=== PATIENT | male | born 1985 | race Caucasian/White ===

== ENCOUNTER 2019-04-09 00:16 | Emergency (ER) | payer OTHER ==
--- NOTE | 2019-04-09 00:50 | ED ---
General Adult HPI - General Chief complaint: Psychiatric Symptoms Stated complaint: Petition Time Seen by Provider: 04/09/19 00:36 Source: patient, family Mode of arrival: ambulatory Limitations: no limitations - History of Present Illness Initial comments: Dictation was produced using [employer] dictation software. please excuse any gramm atical, word or spelling errors. Chief Complaint: 33-year-old male with suicidal ideation. History of Present Illness: Patient is 33-year-old male. He is petitioned by his mother. Patient is escorted via law enforcement. Patient was allegedly at home. He states he is been under a lot of personal stress. He was diagnosed with a crit cancer 8 months ago. Patient is at home and held a knife to himself [place] suicidal comment to his mother. Mother's is here to petitioned patie nt for psychiatric reasons. Patient states he's been stressed and has been taking his medications like he supposed to. Patient reports he is on a lot of medications. Patient takes pain medications as well for chronic pain. The ROS documented in this emergency department record has been reviewed and confirmed by me. Those systems with pertinent positive or negative responses have been documented in the HPI. All other systems are other negative and/or noncontributory. PHYSICAL EXAM: General Impression: Alert and oriented x3, not in acute distress HEENT: Normocephalic atraumatic, extra-ocular movements intact, pupils equal and reactive to light bilaterally, mucous membranes moist. Cardiovascular: Heart regular rate and rhythm, S1&S2 audible, no murmurs, rubs or gallops Chest: Lungs clear to auscultation bilaterally, no rhonchi, no wheeze, no rales Abdomen: Bowel sounds present, abdomen soft, non-tender, non-distended, no organomegaly Musculoskeletal: Pulses present and equal in all extremities, no peripheral edema Motor: no focal deficits noted Neurological: CN II-XII grossly intact, no focal motor or sensory deficits noted Skin: Intact with no visualized rashes Psych: Normal affect and mood ED course: 33-year-old old male presents with suicidal ideation. Patient has no medical complaints at this time. On arrival are within acceptable limits.Return evaluation was obtained. CBC, coag panel, metabolic panel is unremarkable. Patient did have a alcohol level of 125. Patient was kept in the emergency department to clinical sobriety. EPS was consult it patient is evaluated by EPS and recommended the patient's clear for discharge. He does also provide patient with outpatient resources. Patient does have established outpatient psychiatric care. Patient reevaluated at bedside. He reports that he is not currently suicidal. Patient states he's undergoing a lot of personal stress given living arrangements and recent diagnosis of pancreatic cancer. She states he will follow up outpatient. Patient denies suicidal ideation at this time. Patient clear for discharge. - Related Data Allergies Allergy/AdvReac Type Severity Reaction Status Date / Time asenapine [From Saphris] Allergy Hallucinati Verified 04/09/19 00:33 ons Review of Systems ROS Statement: Those systems with pertinent positive or pertinent negative responses have been documented in the HPI. ROS Other: All systems not noted in ROS Statement are negative. Past Medical History Additional Past Medical History / Comment(s): pancreatic cancer, back pain, Hep C, History of Any Multi-Drug Resistant Organisms: None Reported Past Surgical History: Orthopedic Surgery Additional Past Surgical History / Comment(s): tumor removal left wrist Past Psychological History: Anxiety, Depression Smoking Status: Current every day smoker Past Alcohol Use History: Heavy Past Drug Use History: None Reported General Exam Limitations: no limitations Course Vital Signs 04/09/19 00:25 Temperature 98.4 F Pulse Rate 93 Respiratory 20 Rate Blood Pressure 117/69 O2 Sat by Pulse 96 Oximetry Medical Decision Making - Lab Data Result diagrams: 04/09/19 00:48 04/09/19 00:48 Lab Results 04/09/19 04/09/19 04/09/19 Range/Units 00:48 00:48 00:48 WBC 9.7 (3.8-10.6) k/uL RBC 5.02 (4.30-5.90) m/uL Hgb 14.7 (13.0-17.5) gm/dL Hct 43.9 (39.0-53.0) % MCV 87.4 (80.0-100.0) fL MCH 29.3 (25.0-35.0) pg MCHC 33.6 (31.0-37.0) g/dL RDW 14.1 (11.5-15.5) % Plt Count 267 (150-450) k/uL Neutrophils % 62 % Lymphocytes % 30 % Monocytes % 5 % Eosinophils % 1 % Basophils % 1 % Neutrophils # 6.0 (1.3-7.7) k/uL Lymphocytes # 2.9 (1.0-4.8) k/uL Monocytes # 0.5 (0-1.0) k/uL Eosinophils # 0.1 (0-0.7) k/uL Basophils # 0.1 (0-0.2) k/uL PT (9.0-12.0) sec INR (<1.2) Sodium 142 (137-145) mmol/L Potassium 4.8 (3.5-5.1) mmol/L Chloride 107 (98-107) mmol/L Carbon Dioxide 25 (22-30) mmol/L Anion Gap 10 mmol/L BUN 9 (9-20) mg/dL Creatinine 0.98 (0.66-1.25) mg/dL Est GFR (CKD-EPI)AfAm >90 (>60 ml/min/1.73 sqM) Est GFR (CKD-EPI)NonAf >90 (>60 ml/min/1.73 sqM) Glucose 85 (74-99) mg/dL Plasma Lactic Acid Marck 1.3 (0.7-2.0) mmol/L Calcium 9.2 (8.4-10.2) mg/dL Total Bilirubin 0.4 (0.2-1.3) mg/dL AST 69 H (17-59) U/L ALT 40 (21-72) U/L Alkaline Phosphatase 99 (38-126) U/L Total Protein 8.4 H (6.3-8.2) g/dL Albumin 4.9 (3.5-5.0) g/dL Lipase 61 (23-300) U/L Urine Opiates Screen (NotDetected) Ur Oxycodone Screen (NotDetected) Urine Methadone Screen (NotDetected) Ur Propoxyphene Screen (NotDetected) Ur Barbiturates Screen (NotDetected) U Tricyclic Antidepress (NotDetected) Ur Phencyclidine Scrn (NotDetected) Ur Amphetamines Screen (NotDetected) U Methamphetamines Scrn (NotDetected) U Benzodiazepines Scrn (NotDetected) Urine Cocaine Screen (NotDetected) U Marijuana (THC) Screen (NotDetected) Serum Alcohol 125 mg/dL 04/09/19 04/09/19 Range/Units 00:48 00:48 WBC (3.8-10.6) k/uL RBC (4.30-5.90) m/uL Hgb (13.0-17.5) gm/dL Hct (39.0-53.0) % MCV (80.0-100.0) fL MCH (25.0-35.0) pg MCHC (31.0-37.0) g/dL RDW (11.5-15.5) % Plt Count (150-450) k/uL Neutrophils % % Lymphocytes % % Monocytes % % Eosinophils % % Basophils % % Neutrophils # (1.3-7.7) k/uL Lymphocytes # (1.0-4.8) k/uL Monocytes # (0-1.0) k/uL Eosinophils # (0-0.7) k/uL Basophils # (0-0.2) k/uL PT 10.8 (9.0-12.0) sec INR 1.0 (<1.2) Sodium (137-145) mmol/L Potassium (3.5-5.1) mmol/L Chloride (98-107) mmol/L Carbon Dioxide (22-30) mmol/L Anion Gap mmol/L BUN (9-20) mg/dL Creatinine (0.66-1.25) mg/dL Est GFR (CKD-EPI)AfAm (>60 ml/min/1.73 sqM) Est GFR (CKD-EPI)NonAf (>60 ml/min/1.73 sqM) Glucose (74-99) mg/dL Plasma Lactic Acid Marck (0.7-2.0) mmol/L Calcium (8.4-10.2) mg/dL Total Bilirubin (0.2-1.3) mg/dL AST (17-59) U/L ALT (21-72) U/L Alkaline Phosphatase (38-126) U/L Total Protein (6.3-8.2) g/dL Albumin (3.5-5.0) g/dL Lipase (23-300) U/L Urine Opiates Screen Detected H (NotDetected) Ur Oxycodone Screen Not Detected (NotDetected) Urine Methadone Screen Not Detected (NotDetected) Ur Propoxyphene Screen Not Detected (NotDetected) Ur Barbiturates Screen Not Detected (NotDetected) U Tricyclic Antidepress Not Detected (NotDetected) Ur Phencyclidine Scrn Not Detected (NotDetected) Ur Amphetamines Screen Not Detected (NotDetected) U Methamphetamines Scrn Not Detected (NotDetected) U Benzodiazepines Scrn Detected H (NotDetected) Urine Cocaine Screen Not Detected (NotDetected) U Marijuana (THC) Screen Not Detected (NotDetected) Serum Alcohol mg/dL Disposition Clinical Impression: Suicidal ideation Disposition: HOME SELF-CARE Condition: Good Instructions (If sedation given, give patient instructions): Help Prevent Suicide (ED) Is patient prescribed a controlled substance at d/c from ED?: No Referrals: Nonstaff,Physician [REFERRING] - 1-2 days Time of Disposition: 05:41
[2019-04-09 01:11] LABS: Basophils # (A) 0.1 k/uL (0-0.2); Basophils % (A) 1 %; Eosinophils # (A) 0.1 k/uL (0-0.7); Eosinophils % (A) 1 %; HCT 43.9 % (39.0-53.0); HGB 14.7 gm/dL (13.0-17.5); Lymphocytes # (A) 2.9 k/uL (1.0-4.8); Lymphocytes % (A) 30 %; MCH 29.3 pg (25.0-35.0); MCHC 33.6 g/dL (31.0-37.0); MCV 87.4 fL (80.0-100.0); Mean Platelet Volume 6.3; Monocytes # (A) 0.5 k/uL (0-1.0); Monocytes % (A) 5 %; Neutrophils % (A) 62 %; Platelet Count 267 k/uL (150-450); RBC 5.02 m/uL (4.30-5.90); RDW 14.1 % (11.5-15.5); WBC 9.7 k/uL (3.8-10.6)
[2019-04-09 01:23] LABS: Prothrombin Time 10.8 sec (9.0-12.0)
[2019-04-09 01:26] LABS: Amphetamine Screen,Urine Not Detected (NotDetected); Barbiturate Screen,Urine Not Detected (NotDetected); Benzodiazepines Screen,Urine Detected (NotDetected); Cocaine Screen,Urine Not Detected (NotDetected); Methadone Screen, Urine Not Detected (NotDetected); Opiate Screen,Urine Detected (NotDetected); Oxycodone Screen, Urine Not Detected (NotDetected); Phencyclidine Screen,Urine Not Detected (NotDetected); Tricyclic Antidepressant,Urine Not Detected (NotDetected); Urn Cannabinoid Scrn Not Detected (NotDetected)
[2019-04-09] MEDS: MORPHINE SULFATE 4 MG/ML SYRINGE IVP PRN ×2 (01:28→03:34)
[2019-04-09 01:29] LABS: ALT 40 U/L (21-72); AST 69 U/L (17-59); African American GFR (CKD) >90 (>60 ml/min/1.73 sqM); Albumin 4.9 g/dL (3.5-5.0); Alkaline Phosphatase 99 U/L (38-126); Anion Gap 10 mmol/L; Blood Urea Nitrogen 9 mg/dL (9-20); Calcium 9.2 mg/dL (8.4-10.2); Carbon Dioxide 25 mmol/L (22-30); Chloride 107 mmol/L (98-107); Glucose 85 mg/dL (74-99); Lipase 61 U/L (23-300); Potassium 4.8 mmol/L (3.5-5.1); Sodium 142 mmol/L (137-145); Total Bilirubin 0.4 mg/dL (0.2-1.3); Total Protein 8.4 g/dL (6.3-8.2)
[2019-04-09 01:36] LABS: Alcohol 125 mg/dL
[2019-04-09] MEDS ORDERED: MORPHINE SULFATE 4 MG/ML SYRINGE IVP PRN (03:13)
[2019-04-09 06:36] VITALS: BP 116/56; PULSE 83; RESP 19; TEMP 97.6
== END 2019-04-09 06:33 | disposition home or self-care (01) ==
LOC: EC 00:16
DX: R45.851 Suicidal ideations (principal); C25.9 Malignant neoplasm of pancreas, unspecified; F43.8 Other reactions to severe stress; G89.29 Other chronic pain; F17.200 Nicotine dependence, unspecified, uncomplicated; Z88.8 Allergy status to other drugs, medicaments and biological substances
CPT/HCPCS: 82075; 36415; 80053; 83605; 83690; 85025; 85610; 80306; 99285; 96374; 96376; G0480; J2270; 80320

== ENCOUNTER 2019-04-09 16:20 | Inpatient (IN) | payer MEDICAID, OTHER ==
--- NOTE | 2019-04-09 16:42 | ED ---
General Adult HPI - General Stated complaint: Mental Health Time Seen by Provider: 04/09/19 16:25 Source: RN notes reviewed - History of Present Illness Initial comments: This is a 33-year-old male who presents emergency Department stating his bipolar as well as schizophrenic. Patient states she was recently admitted to a psychiatric facility and was discharged 2 days ago and he states ever since then he has not taken any as medications. Patient felt as though no one cares about him so he decided to take his meds. Patient states he is suicidal today and he tried cutting himself in multiple places but was unable to make any significant lacerations. Patient states he had a few beers today but denies any drug use today. Patient states she's chronically on opiates but has not had them since he left the hospital recently. Patient denies any recent fever chills or cough per patient denies headache patient denies numbness weakness. Patient denies chest pain difficulty breathing shortest breath per patient denies abdominal pain. Patient denies any nausea vomiting diarrhea. 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 - Related Data Home Medications Medication Instructions Recorded Confirmed Dextroamphetamine/Amphetamine 20 mg PO BID 04/09/19 04/09/19 [Adderall] Gabapentin 600 mg PO BID 04/09/19 04/09/19 QUEtiapine [SEROquel] 400 mg PO HS 04/09/19 04/09/19 Sertraline [Zoloft] 150 mg PO DAILY 04/09/19 04/09/19 Trihexyphenidyl HCl 5 mg PO HS 04/09/19 04/09/19 clonazePAM [KlonoPIN] 1 mg PO TID 04/09/19 04/09/19 Allergies Allergy/AdvReac Type Severity Reaction Status Date / Time asenapine [From Saphris] AdvReac Hallucinati Verified 04/09/19 17:11 ons Review of Systems ROS Statement: Those systems with pertinent positive or pertinent negative responses have been documented in the HPI. ROS Other: All systems not noted in ROS Statement are negative. Past Medical History Additional Past Medical History / Comment(s): pancreatic cancer, back pain, Hep C, History of Any Multi-Drug Resistant Organisms: None Reported Past Surgical History: Orthopedic Surgery Additional Past Surgical History / Comment(s): tumor removal left wrist Past Psychological History: Anxiety, Depression Smoking Status: Current every day smoker Past Alcohol Use History: Heavy Past Drug Use History: None Reported General Exam - General Exam Comments Initial Comments: GENERAL: Patient is well-developed and well-nourished. Patient is nontoxic and well- hydrated and is in mild distress. ENT: Neck has full range of motion without eliciting any pain. EYES: The sclera were anicteric and conjunctiva were pink and moist. Extraocular movements were intact and pupils were equal round and reactive to light. Eyelids were unremarkable. PULMONARY: Unlabored respirations. Good breath sounds bilaterally. No audible rales rhonchi or wheezing was noted. CARDIOVASCULAR: There is a regular rate and rhythm without any murmurs gallops or rubs. ABDOMEN: Soft and nontender with normal bowel sounds. SKIN: Skin is clear with no lesions or rashes and otherwise unremarkable. NEUROLOGIC: Patient is alert and oriented x3. Cranial nerves II through XII are grossly intact. Motor and sensory are also intact. Normal speech, volume and content. Symmetrical smile. MUSCULOSKELETAL: Patient has full range of motion of all his extremities however the left posterior hand has a rate in diameter mass which is tender to palpation but not warm or erythematous. LYMPHATICS: No significant lymphadenopathy is noted PSYCHIATRIC: Patient states he suicidal. Course Vital Signs 04/09/19 16:30 Temperature 98 F Pulse Rate 84 Respiratory 18 Rate Blood Pressure 124/85 O2 Sat by Pulse 96 Oximetry Medical Decision Making - Medical Decision Making Dr. Whiteside will be taking over the care of this patient at 9 PM - Lab Data Lab Results 04/09/19 Range/Units 17:50 Urine Opiates Screen Detected H (NotDetected) Ur Oxycodone Screen Not Detected (NotDetected) Urine Methadone Screen Not Detected (NotDetected) Ur Propoxyphene Screen Not Detected (NotDetected) Ur Barbiturates Screen Not Detected (NotDetected) U Tricyclic Antidepress Not Detected (NotDetected) Ur Phencyclidine Scrn Not Detected (NotDetected) Ur Amphetamines Screen Not Detected (NotDetected) U Methamphetamines Scrn Not Detected (NotDetected) U Benzodiazepines Scrn Not Detected (NotDetected) Urine Cocaine Screen Not Detected (NotDetected) U Marijuana (THC) Screen Not Detected (NotDetected) Disposition Referrals: Guido Lopez MD [Primary Care Provider] - 1-2 days
[2019-04-09 18:51] LABS: Amphetamine Screen,Urine Not Detected (NotDetected); Barbiturate Screen,Urine Not Detected (NotDetected); Benzodiazepines Screen,Urine Not Detected (NotDetected); Cocaine Screen,Urine Not Detected (NotDetected); Methadone Screen, Urine Not Detected (NotDetected); Opiate Screen,Urine Detected (NotDetected); Oxycodone Screen, Urine Not Detected (NotDetected); Phencyclidine Screen,Urine Not Detected (NotDetected); Tricyclic Antidepressant,Urine Not Detected (NotDetected); Urn Cannabinoid Scrn Not Detected (NotDetected)
[2019-04-09] MEDS ORDERED: ACETAMINOPHEN TAB 325 MG TAB PO PRN (21:52)
[2019-04-09] MEDS ORDERED: MAGNESIUM HYDROXIDE 2,400 MG/10 ML CUP PO PRN (21:52)
[2019-04-09] MEDS ORDERED: ZIPRASIDONE 20 MG VIAL IM PRN (21:52)
[2019-04-09] MEDS ORDERED: MAG HYDROX/AL HYDROX/SIMETH 30 ML CUP PO PRN (21:52)
[2019-04-09] MEDS: QUEtiapine 400 MG TAB PO SCH (22:36)
[2019-04-09] MEDS: LORazepam 1 MG TAB PO PRN (22:44)
[2019-04-10 02:54] VITALS: BMI 21.0
[2019-04-10] MEDS: NICOTINE 14MG/24HR PATCH TRANSDERM SCH (09:23)
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
[2019-04-10] MEDS: SERTRALINE 100 MG TAB PO SCH (09:30)
[2019-04-10] MEDS: LORazepam 1 MG TAB PO PRN ×2 (09:31→21:12)
[2019-04-10] MEDS: FOLIC ACID 1 MG TAB PO SCH (09:31)
[2019-04-10] MEDS: THIAMINE 100 MG TAB PO SCH (09:31)
[2019-04-10] MEDS: GABAPENTIN 300 MG CAP PO SCH ×2 (09:31→21:11)
[2019-04-10 11:03] LABS: Basophils % (A) 0 %; Eosinophils # (A) 0.1 k/uL (0-0.7); Eosinophils % (A) 1 %; HCT 44.5 % (39.0-53.0); HGB 14.5 gm/dL (13.0-17.5); Lymphocytes # (A) 1.7 k/uL (1.0-4.8); Lymphocytes % (A) 25 %; MCH 28.8 pg (25.0-35.0); MCHC 32.7 g/dL (31.0-37.0); Mean Platelet Volume 6.5; Monocytes # (A) 0.4 k/uL (0-1.0); Monocytes % (A) 6 %; Neutrophils # (A) 4.6 k/uL (1.3-7.7); Neutrophils % (A) 66 %; Platelet Count 227 k/uL (150-450); RBC 5.06 m/uL (4.30-5.90); RDW 13.9 % (11.5-15.5); WBC 6.9 k/uL (3.8-10.6)
[2019-04-10 11:30] LABS: ALT 42 U/L (21-72); AST 53 U/L (17-59); African American GFR (CKD) >90 (>60 ml/min/1.73 sqM); Albumin 4.1 g/dL (3.5-5.0); Alkaline Phosphatase 87 U/L (38-126); Anion Gap 5 mmol/L; Bilirubin, Delta 0.1 mg/dL (0.0-0.2); Bilirubin,Unconjugated 0.3 mg/dL (0.0-1.1); Blood Urea Nitrogen 14 mg/dL (9-20); Calcium 9.2 mg/dL (8.4-10.2); Carbon Dioxide 30 mmol/L (22-30); Chloride 105 mmol/L (98-107); Cholesterol 212 mg/dL (<200); Glucose 96 mg/dL (74-99); HDL Cholesterol 59 mg/dL (40-60); LDL Cholesterol,Calculated 121 mg/dL (0-99); Potassium 4.3 mmol/L (3.5-5.1); Sodium 140 mmol/L (137-145); Total Bilirubin 0.4 mg/dL (0.2-1.3); Total Protein 6.9 g/dL (6.3-8.2); Triglycerides 160 mg/dL (<150)
[2019-04-10 18:29] LABS: Hemoglobin A1C 5.5 % (4.0-6.0)
[2019-04-10] MEDS: QUEtiapine 400 MG TAB PO SCH (21:12)
--- NOTE | 2019-04-10 21:36 | P.PN ---
Progress Note - Text Progress Note Date: 04/10/19 patient refused to be seen at this time by the medical doctor
[2019-04-11] MEDS: SERTRALINE 100 MG TAB PO SCH (08:30)
[2019-04-11] MEDS: THIAMINE 100 MG TAB PO SCH (08:31)
[2019-04-11] MEDS: FOLIC ACID 1 MG TAB PO SCH (08:31)
[2019-04-11] MEDS: GABAPENTIN 300 MG CAP PO SCH ×2 (08:32→20:40)
[2019-04-11] MEDS: LORazepam 1 MG TAB PO PRN ×3 (08:33→20:41)
[2019-04-11] MEDS: NICOTINE 14MG/24HR PATCH TRANSDERM SCH (09:05)
--- NOTE | 2019-04-11 14:18 | P.PN ---
Progress Note - Text Interval history: The patient's found in group he follows me to an interview room. He states his mood is much better. He reports he slept last night appetite stable. He is starting to attend some groups. We reviewed his psychotropic medication his questions were answered. He reports that suicidal thoughts have resolved already. As an explanation for the quick change he states "I'm spontaneous". Mental status exam: The patient is a thin male appearing his stated age. He is dressed in his own clothing. Eye contact is appropriate. He is pleasant cooperative easily directed. He states his mood is better. He states he no longer has any suicidal ideation intent or plan. He is reporting no homicidal ideation intent or plan. He states he feels hopeful is been placed back on his medications. He is demonstrating no tangential thinking loose associations or flight of ideas. He demonstrates no verbal or physical aggressiveness he demonstrates no involuntary repetitive movements. Insight and judgment limited but improving. Plan: The patient will continue on his current psychotropic medications. He requests that the Artane be restarted as it helps with restless leg symptoms. He requested to have his Adderall restarted he was informed that we do not carry that medication. We discussed is being tapered off of alcohol with Ativan and it will not be our intention to continue him on a benzodiazepine. He does not wish to participate in inpatient chemical dependency treatment at this time for his alcohol use. We discussed the consequences of his excessive alcohol use. He is encouraged to continue participating in the milieu. Vital signs reviewed. CIWA score 0.
[2019-04-11] MEDS: QUEtiapine 400 MG TAB PO SCH (20:40)
[2019-04-11] MEDS: TRIHEXYPHENIDYL 2 MG TAB PO SCH (20:40)
[2019-04-12 06:50] VITALS: RESP 16
[2019-04-12] MEDS: NICOTINE 14MG/24HR PATCH TRANSDERM SCH (08:32)
[2019-04-12] MEDS: SERTRALINE 100 MG TAB PO SCH (08:33)
[2019-04-12] MEDS: GABAPENTIN 300 MG CAP PO SCH ×2 (08:33→20:07)
[2019-04-12] MEDS: FOLIC ACID 1 MG TAB PO SCH (08:33)
[2019-04-12] MEDS: LORazepam 1 MG TAB PO PRN (08:35)
[2019-04-12] MEDS: THIAMINE 100 MG TAB PO SCH (08:36)
--- NOTE | 2019-04-12 11:12 | P.PN ---
Progress Note - Text Interval history: The patient is found in his room he follows me to an interview room. He states that he is improving. He reports that he is sleeping adequately. Appetite stable. He has been selectively attending groups. He has no questions or concerns regarding his medication. He thinks that he may be able to stay with his mother upon discharge he plans on giving her a call. He states that he would like to be discharged before Saturday so that he can make it to his scheduled physician appointments. Mental status exam: The patient is a thin male appearing his stated age she presents with adequate hygiene grooming. He is dressed in the same clothes as yesterday. He is pleasant and cooperative throughout the session. He indicates that his mood is better and that he feels safe. He is reporting no suicidal or homicidal ideation intent or plan. He is reporting no auditory or visual hallucinations or any specific delusions. There is no observed evidence of psychosis. Thought process is linear he demonstrates no tangential thinking loose associations or flight of ideas he does not appear hypomanic or manic. He demonstrates no verbal or physical aggressiveness. He demonstrates no involuntary repetitive movements. He is oriented to person place and date. Plan: The patient will continue on his current psychotropic medication. He is encouraged to begin arrangements for where he will stay upon discharge. We will monitor him for safety. He may be appropriate for discharge in the next 1-2 days depending on his clinical progress. He is encouraged to attend more groups throughout the day. Vital signs reviewed.
[2019-04-12] MEDS ORDERED: LORazepam 1 MG TAB PO PRN (11:13)
[2019-04-12] MEDS: QUEtiapine 400 MG TAB PO SCH (20:07)
[2019-04-12] MEDS: TRIHEXYPHENIDYL 2 MG TAB PO SCH (20:07)
--- NOTE | 2019-04-12 23:56 | P.MDCNMH ---
History of Present Illness H&P Date: 04/12/19 Chief Complaint: suicidal ideatio n 33-year-old male with history of pancreatic cancer and depression and bipolar disorder Patient was refusing to see the medical doctor for many days. Eventually he was able to today Patient presented hospital due to suicidal ideation reports he is homeless, this is being managed by psychiatry. Medicine was consulted for medical management. Patient was found to have low TSH, and after checking free T4 and was found to be low too which indicates primary hypothyroidism which this could contribute to symptoms of depression. Patient calculated required doses 112 g daily patient will be started on 50 this can be increased by 12.5-25 g every 4-6 weeks he will need close follow-up with endocrinology for this purpose. Currently patient otherwise denies any medical concerns. He reports history of pancreatic cancer but is not sure of the status of his cancer reports receiving chemotherapy. 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 All other systems were reviewed and are negative Past Medical History Additional Past Medical History / Comment(s): pancreatic cancer, back pain, Hep C, History of Any Multi-Drug Resistant Organisms: None Reported Past Surgical History: Orthopedic Surgery Additional Past Surgical History / Comment(s): tumor removal left wrist Past Anesthesia/Blood Transfusion Reactions: No Reported Reaction Past Psychological History: Anxiety, Depression, PTSD Additional Psychological History / Comment(s): PT reports sever PTSD and states he "wakes up swinging." Smoking Status: Current every day smoker Past Alcohol Use History: Daily, Heavy Past Drug Use History: Heroin, Opiates Additional Drug Use History / Comment(s): Pt states he has not used heroin in about 2 years. - Past Family History FAMILY Family Medical History: No Reported History Medications and Allergies Home Medications Medication Instructions Recorded Confirmed Type Dextroamphetamine/Amphetamine 20 mg PO BID 04/09/19 04/09/19 History [Adderall] Gabapentin 600 mg PO BID 04/09/19 04/09/19 History QUEtiapine [SEROquel] 400 mg PO HS 04/09/19 04/09/19 History Sertraline [Zoloft] 150 mg PO DAILY 04/09/19 04/09/19 History Trihexyphenidyl HCl 5 mg PO HS 04/09/19 04/09/19 History clonazePAM [KlonoPIN] 1 mg PO TID 04/09/19 04/09/19 History Allergies Allergy/AdvReac Type Severity Reaction Status Date / Time Fish Containing Products Allergy Severe Anaphylaxis Verified 04/09/19 23:42 asenapine [From Saphris] AdvReac Severe Hallucinati Verified 04/09/19 23:42 ons Physical Exam Vitals: Vital Signs Temp Pulse Pulse Pulse Resp BP BP 04/10/19 09:34 90 18 117/69 04/09/19 22:29 97.7 F 79 13 04/09/19 21:51 97 F L 86 14 120/67 BP Pulse Ox 04/10/19 09:34 04/09/19 22:29 115/80 04/09/19 21:51 96 Constitutional: No acute distress, conversant, pleasant Eyes: Anicteric sclerae, moist conjunctiva, no lid-lag Pupils equal round reactive to light ENMT: NC/AT Oropharynx clear, no erythema, exudates Neck: Supple, FROM, no masses, or JVD No carotid bruits No thyromegaly Lungs: Clear to auscultation Clear to percussion Normal respiratory effort, no accessory muscle use Cardiovascular: Heart regular in rate and rhythm, No murmurs, gallops, or rubs No peripheral edema Abdominal: Soft Nontender, no guarding, rebound or rigidity Abdomen moving with respiration Normoactive bowel sounds No hepatomegaly, No splenomegaly No palpable mass No abdominal wall hernia noted Skin: Left forearm with 2 areas of healing scar with underlying swelling patient reports tumor-like masses in the area due to metastases from his pancreatic cancer to nontender no skin changes no warmth to touch Normal temperature, tone, texture, turgor No induration No rash, lesions No ulcers Extremities: No digital cyanosis No clubbing Pedal pulses intact and symmetrical Radial pulses intact and symmetrical No calf tenderness Psychiatric: Alert and oriented to person, place and time Appropriate affect fair judgment Neuro Muscles Strength 5/5 in all 4 extremities Sensation to light touch grossly present throughout Cranial nerves II-XII grossly intact No focal sensory deficits Lymphatics: no palpable cervical or supraclavicular , or inguinal lymph nodes Cranial Nerve Examination - Cranial Nerves Cranial Nerve II- Optic: Intact Cranial Nerve III- Oculomotor: Intact Cranial Nerve IV- Trochlear: Intact Cranial Nerve V- Trigeminal: Intact Cranial Nerve - Abducens: Intact Cranial Nerve VII- Facial: Intact Cranial Nerve VIII- Auditory: Intact Cranial Nerve IX- Glossopharyngeal: Intact Cranial Nerve X- Vagus: Intact Cranial Nerve XI- Accessory: Intact Cranial Nerve XII- Hypoglossal: Intact Results CBC & Chem 7: 04/10/19 10:31 04/10/19 10:31 Labs: Abnormal Lab Results - Last 24 Hours (Table) 04/10/19 Range/Units 10:31 Triglycerides 160 H (<150) mg/dL Cholesterol 212 H (<200) mg/dL LDL Cholesterol, Calc 121 H (0-99) mg/dL TSH 0.162 L (0.465-4.680) mIU/L Assessment and Plan Assessment: 33-year-old male with history of bipolar schizophrenia patient is homeless presented to the hospital due to suicidal ideation active medical problems at this time. Patient was found to have low TSH on initial labs will continue follow-up Plan: bipolar depression suicidal ideation management per psych primary hypothyroidism goal dose of 112 mcg daily dose need to be adjusted every 4 weeks in the outpatien tsetting referral to endocrinology upon discharge start levothyroxin at 50 mcg daily DVT pPx encourage ambulation , heparin sq tid , due to history of pancreatic cancer history of pancreatic cancer, patient is not sure of the status of his cancer, he reports mets tumors to his left forearm Thank you for allowing us to participate in the care of this patient. We will follow peripherally. Do not hesitate to contact us with questions. Someone can be reached from the [facility] hospitalist group at all hours of the day at [phone].
[2019-04-13] MEDS ORDERED: LEVOTHYROXINE 50 MCG TAB PO SCH (06:30)
[2019-04-13 06:49] VITALS: BP 116/78; PULSE 64; TEMP 97.9
[2019-04-13] MEDS: NICOTINE 14MG/24HR PATCH TRANSDERM SCH (08:19)
[2019-04-13] MEDS: SERTRALINE 100 MG TAB PO SCH (08:20)
[2019-04-13] MEDS: GABAPENTIN 300 MG CAP PO SCH (08:20)
[2019-04-13] MEDS: FOLIC ACID 1 MG TAB PO SCH (08:21)
[2019-04-13] MEDS: THIAMINE 100 MG TAB PO SCH (08:23)
--- NOTE | 2019-04-13 09:45 | P.DS ---
Providers Date of admission: 04/09/19 21:37 Expected date of discharge: 04/13/19 Attending physician: Scout Gasca Consults: 04/09/19 21:52 Consult Physician Routine Consulting Provider: Simón Coronado Consult Reason/Comments: H & P and medical care Do you want consulting provider notified?: Yes Primary care physician: Guido Lopez - Discharge Diagnosis(es) (1) Bipolar disorder Current Visit: Yes Status: Acute Priority: High (2) Alcohol use disorder Current Visit: Yes Status: Acute Priority: Medium Hospital Course: Brief summary of admission note: This patient is a 33-year-old single male who was admitted to the mental health unit through the emergency room for suicidal ideation. The patient states that he was feeling overwhelmed and hopeless sleep and appetite have been poor. He had also been off of his psychotropic medication for numerous days and had been consuming alcohol on a daily basis. This occurs in the context of him being homeless as well. He stated that he was diagnosed with pancreatic cancer 8 months ago. He described a history that seemed consistent with bipolar disorder alcohol use disorder and possibly PTSD. For full details please refer to my psychiatric evaluation dated 04/10/2019. Summary of hospital course: The patient was admitted to the mental health unit voluntarily. We reviewed his presenting symptoms and treatment options. We decided to restart his psychotropic medications which included Zoloft, Seroquel, Artane, Neurontin. He was not continued on Klonopin or Adderall. He was seen by internal medicine for routine history and physical exam. Social work met with the patient to complete a psychosocial assessment and for discharge planning purposes. The patient only selectively participated in groups. He did report a progressive improvement of symptoms while here. He states that there has been a resolution of suicidal ideation. He anticipates staying with his mother upon discharge. He states that he spoke with her via phone yesterday and she was agreeable. He is amenable to having social work confirm this with his mother. Mental status exam: The patient is a thin male appearing his stated age. He is dressed in the same clothing hygiene grooming adequate. Speech is fluent spontaneous nonpressured. He indicates his mood is better he states he has no suicidal or homicidal ideation intent or plan. Affect appears euthymic and is appropriately reactive. He denies having any auditory or visual hallucinations or any specific delusions. There is no observed evidence of psychosis. Thought process is linear he demonstrates no tangential thinking loose associations or flight of ideas. He does not appear hypomanic or manic. He demonstrates no verbal or physical aggressiveness he demonstrates no involuntary repetitive movements. He demonstrates future oriented thinking in outlining things he needs to do in the next 2 weeks. He is oriented to person place and date. Impressions 1. Bipolar disorder depressed, alcohol use disorder, rule out PTSD 2. Reported history of pancreatic cancer Plan: The patient will be discharged mental health unit today. He will continue on Seroquel 400 mg at bedtime, Zoloft 150 mg daily, Artane 5 mg at bedtime, Neurontin 600 mg twice daily. He was placed on Synthroid be continued at 50 g daily. He is instructed to abstain from any use of alcohol marijuana or illicit drugs. We discussed the continued use of these substances could precipitate mood symptoms and elevate his safety risk. We discussed treatment options he does not wish to participate in inpatient chemical dependency treatment. He is willing to continue working with his outpatient psychiatrist. At this time there is no imminent safety risk and he is appropriate for transition back to outpatient care. He is instructed to return to the hospital if any acute safety concerns. Patient Condition at Discharge: Stable Plan - Discharge Summary Discharge Rx Participant: No New Discharge Prescriptions: New Nicotine 14Mg/24Hr Patch [Habitrol] 1 patch TRANSDERM DAILY #14 patch Levothyroxine Sodium [Synthroid] 50 mcg PO DAILY@0630 #30 tab Continue Gabapentin 600 mg PO BID #60 tablet QUEtiapine [SEROquel] 400 mg PO HS #30 tab Trihexyphenidyl HCl 5 mg PO HS #30 tablet Sertraline [Zoloft] 150 mg PO DAILY #45 tab Discontinued clonazePAM [KlonoPIN] 1 mg PO TID Dextroamphetamine/Amphetamine [Adderall] 20 mg PO BID Discharge Medication List Gabapentin 600 mg PO BID #60 tablet 04/13/19 [Rx] Levothyroxine Sodium [Synthroid] 50 mcg PO DAILY@0630 #30 tab 04/13/19 [Rx] Nicotine 14Mg/24Hr Patch [Habitrol] 1 patch TRANSDERM DAILY #14 patch 04/13/19 [Rx] QUEtiapine [SEROquel] 400 mg PO HS #30 tab 04/13/19 [Rx] Sertraline [Zoloft] 150 mg PO DAILY #45 tab 04/13/19 [Rx] Trihexyphenidyl HCl 5 mg PO HS #30 tablet 04/13/19 [Rx] Follow up Appointment(s)/Referral(s): Guido Lopez MD [Primary Care Provider] - 1-2 days Tania Vaz MD [STAFF PHYSICIAN] - 1 Week Patient Instructions/Handouts: Hypothyroidism (DC)
== END 2019-04-13 12:16 | disposition home or self-care (01) | DRG 885 ==
LOC: EC 16:20 → 3MHU 21:37
PROVIDERS: ADMIT Psychiatry & Neurology Psychiatry; ATTEND Psychiatry & Neurology Psychiatry
DX: F31.30 Bipolar disorder, current episode depressed, mild or moderate severity, unspecified (principal); F10.239 Alcohol dependence with withdrawal, unspecified; R45.851 Suicidal ideations; C25.9 Malignant neoplasm of pancreas, unspecified; G40.909 Epilepsy, unspecified, not intractable, without status epilepticus; G25.81 Restless legs syndrome; E03.9 Hypothyroidism, unspecified; B19.20 Unspecified viral hepatitis C without hepatic coma; F43.10 Post-traumatic stress disorder, unspecified; F17.210 Nicotine dependence, cigarettes, uncomplicated; Z71.6 Tobacco abuse counseling; G89.29 Other chronic pain; M54.9 Dorsalgia, unspecified; M79.642 Pain in left hand; Z79.899 Other long term (current) drug therapy; Z62.810 Personal history of physical and sexual abuse in childhood; Z59.0 Homelessness; Z91.5 Personal history of self-harm; Z98.890 Other specified postprocedural states; Z65.3 Problems related to other legal circumstances; Z92.21 Personal history of antineoplastic chemotherapy; Z92.3 Personal history of irradiation; Z88.8 Allergy status to other drugs, medicaments and biological substances; Z91.018 Allergy to other foods
CPT/HCPCS: 80053; 80061; 80306; 82075; 82248; 83036; 84439; 84443; 85025; 99285